=== PATIENT | female | born 1970 | race Asian ===

== ENCOUNTER → 2021-03-28 | Outpatient (CLI) | payer OTHER | LOC: MAMO 01-06 08:00 | DX: Z12.31 Encounter for screening mammogram for malignant neoplasm of breast (principal) | CPT/HCPCS: 77063; 77067 ==

== ENCOUNTER → 2022-01-13 | Outpatient (CLI) | payer OTHER | LOC: EXRD 09:20 | DX: R05.9 Cough, unspecified (principal); R06.00 Dyspnea, unspecified; R00.2 Palpitations | CPT/HCPCS: 71046 ==

== ENCOUNTER → 2022-01-26 | Outpatient (CLI) | payer OTHER | LOC: HEART 5 01-24 15:00 | DX: R00.2 Palpitations (principal) ==

== ENCOUNTER 2022-08-07 09:23 | Emergency (ER) | payer OTHER ==
[2022-08-07 15:03] LABS: HEMOGLOBIN 13.3 gm/dl (12.3-15.3); RED BLOOD COUNT 4.51 M/UL (4.00-5.10)
[2022-08-07 15:27] LABS: BUN/CREATININE RATIO 18 (0-10)
[2022-08-07] MEDS ORDERED: ZOFRAN ODT 4 MG4 MG PO (17:40)
[2022-08-07] MEDS ORDERED: ANTIVERT25 M1 PO (17:40)
== END 2022-08-07 17:53 | disposition home or self-care (01) ==
LOC: ER1 09:23
PROVIDERS: Student in an Organized Health Care Education/Training Program
DX: H81.10 Benign paroxysmal vertigo, unspecified ear (principal); H55.00 Unspecified nystagmus
CPT/HCPCS: 70450; 70496; 70498; 80053; 81001; 84703; 85025; 99284; Q9967